=== PATIENT | female | born 1970 | race Caucasian/White ===

== ENCOUNTER → 2017-04-17 | Outpatient (CLI) | payer BC, OTHER ==
[~2017-04-17] MED LIST: IBUP200C8 PO
== END ==
LOC: STAR 13:46
PROVIDERS: ATTEND Obstetrics & Gynecology
DX: Z02.9 Encounter for administrative examinations, unspecified (principal)

== ENCOUNTER 2017-04-29 10:29 | Day surgery (SDC) | payer BC, OTHER ==
[2017-04-17 08:08] VITALS: BP 133/84
[~2017-04-29] VITALS: Ht 172.7 cm; Wt 53.9 kg
[2017-04-29] MEDS ORDERED: LACTATED RINGERS 1,000 ML IV SCH (10:44)
[2017-04-29] MEDS ORDERED: ACET325T14 PO (10:46)
[2017-04-29] MEDS ORDERED: LIDOCAINE 1%, 2ML ONE (10:53)
[2017-04-29] MEDS ORDERED: LIDOCAINE 1%, 2ML SQ PRN (11:00)
[2017-04-29 11:03] LABS: HCG UR LOT HCG706132
[2017-04-29 11:06] LABS: HCG UR OBC PASS
[2017-04-29] MEDS ORDERED: MIDAZOLAM 1 MG/ML, 2ML ONE (11:47)
[2017-04-29] MEDS ORDERED: FENTANYL PF 100 MCG/2ML ONE ×2 (11:48→13:19)
[2017-04-29] MEDS ORDERED: SILVER NITRATE STICK TP ONE ×2 (12:12→13:12)
[2017-04-29] MEDS ORDERED: BUPIVACAINE/PF 0.25% ONE (12:12)
[2017-04-29] MEDS ORDERED: EPINEPHRINE 1 MG/ML, 1ML ONE (12:12)
[2017-04-29] MEDS ORDERED: KETOROLAC 30 MG/1 ML ONE (12:32)
[2017-04-29] MEDS ORDERED: DEXAMETHASONE 4 MG/ML, 1ML ONE ×2 (12:42→12:43)
[2017-04-29] MEDS ORDERED: PROPOFOL 10 MG/ML, 20ML ONE (12:42)
[2017-04-29] MEDS ORDERED: ONDANSETRON 2MG/ML, 2ML ONE ×2 (12:42→12:43)
[2017-04-29] MEDS ORDERED: PROMETHAZINE 25 MG/ML, 1ML IV PRN (13:00)
[2017-04-29] MEDS ORDERED: hydrALAzine 20 MG/ML, 1ML IV PRN (13:00)
[2017-04-29] MEDS ORDERED: MEPERIDINE/PF 25MG/0.5ML IVPush PRN (13:00)
[2017-04-29] MEDS ORDERED: MIDAZOLAM 1 MG/ML, 2ML IV PRN (13:00)
[2017-04-29] MEDS ORDERED: LABETALOL 5MG/ML, 20ML IV PRN (13:00)
[2017-04-29] MEDS ORDERED: ALBUTEROL SULFATE 2.5 MG/3 ML NPPB PRN (13:00)
[2017-04-29] MEDS ORDERED: ONDANSETRON 2MG/ML, 2ML IVPush PRN (13:00)
[2017-04-29] MEDS ORDERED: HYDROmorphone 1 MG/ML, 1ML IV PRN (13:00)
[2017-04-29] MEDS ORDERED: ACETAMINOPHEN 325 MG TABLET PO PRN (13:00)
[2017-04-29] MEDS ORDERED: OXYcodone 5 MG/5 ML ORAL.SOL UDC ONE ×2 (13:20→13:48)
[2017-04-29] MEDS: FENTANYL PF 100 MCG/2ML IV PRN ×2 (13:27→13:46)
[2017-04-29] MEDS: OXYcodone 5 MG/5 ML ORAL.SOL UDC PO PRN ×2 (13:27→13:50)
[2017-04-29] MEDS ORDERED: HYDROmorphone 2 MG/ML, 1ML ONE (13:47)
[2017-04-29] MEDS ORDERED: ACETAMINOPHEN 650 MG/20.3 ML UDC ONE (13:47)
== END 2017-04-29 15:40 ==
LOC: OUT 10:29
PROVIDERS: ATTEND Obstetrics & Gynecology
DX: N92.0 Excessive and frequent menstruation with regular cycle (principal); N84.0 Polyp of corpus uteri; D64.9 Anemia, unspecified; N94.6 Dysmenorrhea, unspecified; N93.8 Other specified abnormal uterine and vaginal bleeding; Z98.51 Tubal ligation status; Z98.890 Other specified postprocedural states
CPT/HCPCS: 58563; 81025; 88305; J0171; J1100; J1170; J1885; J2250; J2405; J2704; J3010; J3490; J7120